=== PATIENT | male | born 1995 | race Caucasian/White ===

== ENCOUNTER 2018-12-27 16:31 | Emergency (ER) | payer SELFPAY ==
--- NOTE | 2018-12-27 17:24 | ER ---
Nurse's Notes [facility] Name: Richard Duarte Age: 23 yrs Sex: Male : 1995 Arrival Date: 12/27/2018 Time: 16:34 Bed 23 Private MD: Diagnosis: Otitis externa in other diseases classified elsewhere, left ear Presentation: 12/27 16:36 Presenting complaint: Patient states: i have a severe L ear pain for 3 days now and hj when i woke today i felt a spot down my L ear;. Transition of care: patient was not received from another setting of care. Onset of symptoms was December 27, 2018. Risk Assessment: Do you want to hurt yourself or someone else? Patient reports no desire to harm self or others. Initial Sepsis Screen: Does the patient meet any 2 criteria? No. Patient's initial sepsis screen is negative. Does the patient have a suspected source of infection? No. Patient's initial sepsis screen is negative. Care prior to arrival: None. 16:36 Method Of Arrival: Ambulatory 16:36 Acuity: NIRAJ 4 hj Historical: - Allergies: 16:37 No Known Allergies; hj - PMHx: 16:37 None; hj - PSHx: 16:37 None; hj - Immunization history:: Adult Immunizations up to date. - Social history:: Smoking status: Patient/guardian denies using tobacco. - Ebola Screening: : No symptoms or risks identified at this time. Screenin:21 Abuse screen: Denies threats or abuse. Denies injuries from another. Nutritional rv screening: No deficits noted. Tuberculosis screening: No symptoms or risk factors identified. Fall Risk None identified. Assessment: 17:20 General: Appears in no apparent distress. comfortable, Behavior is calm, cooperative. rv Pain: Complains of pain in left ear. Neuro: Level of Consciousness is awake, alert, obeys commands, Oriented to person, place, time, situation. Cardiovascular: Patient's skin is warm and dry. Respiratory: Airway is patent. GI: No signs and/or symptoms were reported involving the gastrointestinal system. : No signs and/or symptoms were reported regarding the genitourinary system. EENT: Ear canal clear on left ear. Derm: Skin is intact. Musculoskeletal: No signs and/or symptoms reported regarding the musculoskeletal system. Vital Signs: 16:38 BP 131 / 75; Pulse 117; Resp 18; Temp 100.0(O); Pulse Ox 100% on R/A; Weight 106.59 kg; hj Height 5 ft. 5 in. (165.10 cm); Pain 10/10; 16:38 Body Mass Index 39.10 (106.59 kg, 165.10 cm) ED Course: 16:34 Patient arrived in ED. mr 16:37 Triage completed. hj 16:37 Arm band placed on. hj 16:57 Heladio Quintanilla PA is PHCP. cp 16:57 Adelfo Grimes MD is Attending Physician. cp 17:20 Blake Rowe, MOO is Primary Nurse. rv 17:21 Patient has correct armband on for positive identification. Bed in low position. Call rv light in reach. Side rails up X 1. Pulse ox on. NIBP on. 17:22 Caitlin Bullock MD is Referral Physician. cp 17:23 Referral Physician role handed off by Caitlin Bullock MD cp 17:23 Caitlin Bullock MD is Referral Physician. cp 17:28 No provider procedures requiring assistance completed. Patient did not have IV access rv during this emergency room visit. Administered Medications: No medications were administered Outcome: 17:23 Discharge ordered by . cp 17:28 Discharged to home ambulatory. rv 17:28 Condition: good 17:28 Discharge instructions given to patient, Instructed on discharge instructions, follow up and referral plans. medication usage, Demonstrated understanding of instructions, follow-up care, medications, Prescriptions given X 1. 17:29 Patient left the ED. rv Signatures: Gabriella EscalerauinDaniele RN RN Heladio Quintanilla PA PA cp Blake Rowe, MOO RN rv Corrections: (The following items were deleted from the chart) 16:39 16:38 Pulse 117bpm; Resp 18bpm; Pulse Ox 100% RA; Temp 100.0F Oral; 106.59 kg; Height 5 hj ft. 5 in.; BMI: 39.1; Pain 10/10; hj
--- NOTE | 2018-12-27 17:24 | EDPHYS ---
Physician Documentation [facility] Name: Richard Duarte Age: 23 yrs Sex: Male : 1995 Arrival Date: 12/27/2018 Time: 16:34 Bed 23 Private MD: ED Physician Adelfo Grimes HPI: 12/27 17:05 This 23 yrs old Male presents to ER via Ambulatory with complaints of Ear cp Pain. 17:05 The patient presents with pain, that is acute, swelling, tenderness. The complaints cp affect the left ear. 17:05 Onset: The symptoms/episode began/occurred 3 day(s) ago. cp 17:05 Associated signs and symptoms: Pertinent negatives: fever, rhinorrhea, sinus trouble, cp sore throat, tinnitus, vertigo. Severity of symptoms: in the emergency department the symptoms are unchanged despite home interventions. Historical: - Allergies: 16:37 No Known Allergies; hj - PMHx: 16:37 None; hj - PSHx: 16:37 None; hj - Immunization history:: Adult Immunizations up to date. - Social history:: Smoking status: Patient/guardian denies using tobacco. - Ebola Screening: : No symptoms or risks identified at this time. ROS: 17:10 Constitutional: Negative for body aches, chills, fever, poor PO intake. cp 17:10 Eyes: Negative for injury, pain, redness, and discharge. cp 17:10 ENT: Positive for ear pain, Negative for drainage from ear(s), sinus congestion, sinus pain, sore throat, difficulty swallowing, difficulty handling secretions. 17:10 Respiratory: Negative for cough, wheezing. 17:10 Abdomen/GI: Negative for abdominal pain, nausea, vomiting, and diarrhea. 17:10 Skin: Negative for rash. 17:10 Neuro: Negative for headache. 17:10 All other systems are negative. Exam: 17:15 Constitutional: The patient appears in no acute distress, alert, awake, non-toxic, well cp developed, well nourished. 17:15 Head/face: Noted is swelling, that is mild, of the left ear. cp 17:15 Eyes: Periorbital structures: appear normal, Conjunctiva: normal, no exudate, no injection, Lids and lashes: appear normal, bilaterally. 17:15 ENT: External ear(s): pain with movement, that is moderate, of the pinna of left ear and left ear canal, swelling, that is moderate, of the left ear canal, Ear canal(s): swelling, that is moderate, of the left canal, TM's: not visable, Examination of the other ear shows no obvious abnormality, Mouth: is normal, Posterior pharynx: is normal. 17:15 Neck: Lymph nodes: lymphadenopathy is appreciated, post auricular nodes. 17:15 Chest/axilla: Inspection: normal. 17:15 Cardiovascular: Rate: tachycardic. 17:15 Respiratory: the patient does not display signs of respiratory distress, Respirations: normal. 17:15 Skin: no rash present. Vital Signs: 16:38 BP 131 / 75; Pulse 117; Resp 18; Temp 100.0(O); Pulse Ox 100% on R/A; Weight 106.59 kg; hj Height 5 ft. 5 in. (165.10 cm); Pain 10/10; 16:38 Body Mass Index 39.10 (106.59 kg, 165.10 cm) hj MDM: 16:59 Patient medically screened. cp 17:22 Differential diagnosis: otitis media, otitis externa, ruptured TM, cerumen impaction, cp barotrauma . 17:22 Data reviewed: vital signs, nurses notes. Counseling: I had a detailed discussion with cp the patient and/or guardian regarding: the historical points, exam findings, and any diagnostic results supporting the discharge/admit diagnosis, the need for outpatient follow up, an ENT specialist, to return to the emergency department if symptoms worsen or persist or if there are any questions or concerns that arise at home. Response to treatment: the patient's symptoms have mildly improved after treatment, and as a result, I will discharge patient. Administered Medications: No medications were administered Disposition: 17:45 Chart complete. cp 18:31 Co-signature as Attending Physician, Adelfo Grimes MD. rn Disposition: 12/27/18 17:23 Discharged to Home. Impression: Otitis externa in other diseases classified elsewhere, left ear. - Condition is Stable. - Discharge Instructions: Otitis Externa. - Prescriptions for Ibuprofen 800 mg Oral Tablet - take 1 tablet by ORAL route every 8 hours As needed take with food; 30 tablet. Cipro 500 mg Oral Tablet - take 1 tablet by ORAL route every 12 hours for 10 days; 20 tablet. Ciprodex 0.3- 0.1 % Otic Drops, Suspension - instill 4 drop by OTIC route every 12 hours for 7 days , for ears ONLY; 1 Container. - Medication Reconciliation Form, Thank You Letter, Antibiotic Education, Prescription Opioid Use form. - Follow up: Caitlin Bullock MD; When: 2 - 3 days; Reason: Worsening of condition. Follow up: Caitlin Bullock MD; When: 2 - 3 days; Reason: Recheck today's complaints. - Problem is new. - Symptoms have improved. Signatures: Adelfo Grimes MD MD rn Daniele Walters RN RN Heladio Desai PA PA cp Blake Rowe, RN RN rv Corrections: (The following items were deleted from the chart) 17:29 17:23 12/27/2018 17:23 Discharged to Home. Impression: Otitis externa in other diseases rv classified elsewhere, left ear. Condition is Stable. Forms are Medication Reconciliation Form, Thank You Letter, Antibiotic Education, Prescription Opioid Use. Follow up: Caitlin Bullock; When: 2 - 3 days; Reason: Recheck today's complaints. Problem is new. Symptoms have improved. cp
[2018-12-27 17:38] VITALS: BP 131/75; TEMP 100; O2SAT 100
== END 2018-12-27 17:29 | disposition home or self-care (01) ==
LOC: ER 16:31
DX: H60.92 Unspecified otitis externa, left ear (principal)
CPT/HCPCS: 99283